=== PATIENT | female | born 1985 | race Caucasian/White ===

== ENCOUNTER 2020-06-06 16:13 | Emergency (ER) | payer OTHER ==
[2020-06-06 17:20] VITALS: BP 148/93; PULSE 108; TEMP 98.5; BMI 26.5
[2020-06-06] MEDS ORDERED: IBUPROFEN 600 MG TABLET (FP) PO ONE ×2 (18:04→18:06)
== END 2020-06-06 18:08 | disposition home or self-care (01) ==
LOC: FER 16:13
DX: S39.012A Strain of muscle, fascia and tendon of lower back, initial encounter (principal)
CPT/HCPCS: 99284-25

== ENCOUNTER 2020-08-15 14:59 | Emergency (ER) | payer OTHER ==
[2020-08-15 15:14] VITALS: BP 131/93; PULSE 106; TEMP 98.8; BMI 26.9
== END 2020-08-15 15:19 | disposition home or self-care (01) ==
LOC: FER 14:59
DX: H93.13 Tinnitus, bilateral (principal); Z00.00 Encounter for general adult medical examination without abnormal findings
CPT/HCPCS: 99282-25

== ENCOUNTER 2023-03-21 20:34 | Emergency (ER) | payer OTHER ==
[2023-03-21 20:44] VITALS: BP 112/78; PULSE 96; RESP 16; TEMP 98.7; BMI 25.2
== END 2023-03-21 21:47 | disposition home or self-care (01) ==
LOC: FER 20:34
DX: S93.401A Sprain of unspecified ligament of right ankle, initial encounter (principal); M25.571 Pain in right ankle and joints of right foot; R22.41 Localized swelling, mass and lump, right lower limb; X58.XXXA Exposure to other specified factors, initial encounter
CPT/HCPCS: 73610-TC-RT-FY; 99283-25